=== PATIENT | male | born 1960 | race African-American/Black ===

== ENCOUNTER 2024-09-07 11:43 | Observation (INO) ==
[2024-09-07] MEDS: FAMOTIDINE 20MG IV PUSH 20 MG/5 ML SYR IV STA (12:07)
[2024-09-07 12:08] LABS: Basophils # (auto) 0.06 K/uL (0.00-0.20); Basophils % (auto) 0.7 %; Eosinophils # (auto) 0.07 K/uL (0.00-0.50); Eosinophils % (auto) 0.9 %; Hematocrit (blood only) 40.9 % (42.0-52.0); Hemoglobin 14.4 g/dl (14.0-18.0); Immature Granulocytes # (auto) 0.05 K/uL (0.01-0.20); Immature Granulocytes % (auto) 0.6 %; Lymphocytes # (auto) 2.87 K/uL (1.20-3.40); Mean Corpuscular Hemoglobin 30.4 pg (25.0-34.0); Mean Corpuscular Hgb Conc 35.2 g/dL (32.0-36.0); Mean Corpuscular Volume 86.3 fL (80.0-100.0); Mean Platelet Volume 10.3 fL (9.4-12.4); Monocytes # (auto) 0.42 K/uL (0.11-0.59); Monocytes % (auto) 5.1 %; Neutrophils # (auto) 4.73 K/uL (1.40-6.50); Neutrophils % (auto) 57.7 %; Platelet Count 278 K/uL (130-400); RDW Coefficient of Variation 12.4 % (11.5-14.5); RDW Standard Deviation 39.2 fL (36.4-46.3); Red Blood Count 4.74 M/uL (4.70-6.10)
[2024-09-07] MEDS: NITROGLYCERIN 2% OINTMENT 30GM TUBE EXT STA (12:17)
[2024-09-07 12:28] LABS: Albumin Globulin Ratio 1.5 (0.9-2); Bilirubin,Total 0.8 mg/dl (0.2-1.0); Calcium 9.2 mg/dl (8.6-10.3); Creatinine Clr Calc Pharmacy 113.8 ml/min; Globulin 2.8 gm/dl (2.5-4.0); Magnesium 1.6 mg/dl (1.7-2.4); Total Protein 7.1 gm/dl (6.0-8.3)
--- NOTE | 2024-09-07 12:29 | Emergency Department Note ---
Impression & Plan Acute epigastric pain, Hypertension, Dyspnea, Hypomagnesemia, Hyperglycemia ED Provider Note ED Provider Note NAME: ASHLEY [id number] JW AGE:64 SEX: Male : 1960 ARRIVES VIA: EMS INFORMANT: Patient ED PROVIDER(s): Luly Jarrett DO CHIEF COMPLAINT: Epigastric pain, shortness of breath, dizziness, indigestion HPI: This is a 64-year-old male presents emergency department due to concern for epigastric pain, shortness of breath, dizziness, and indigestion which began this morning after breakfast. Patient states he ate his usual breakfast and took his medications as prescribed. He states he began to develop a sense of epigastric discomfort and indigestion, with some accompanying shortness of breath and dizziness. He states he tried Tums initially without any significant improvement and then took some Maalox. He states that did not help either and so he went to the [facility]. Patient noted to be hypertensive additionally and metabolic was contacted. Patient markedly hypertensive en route with systolics in the 200s. He was given aspirin 324 mg as well as 1 sublingual nitro. Patient's blood sugar prehospital was in the 300s. Patient denies any recent illness, fevers or chills. He denies any overt chest pain. He states the epigastric pain does not radiate. He denies any diaphoresis, leg swelling, change in bowel or bladder function, or recent change in medications. He denies any history of GERD/gastritis. No prior cardiac history. He states no current shortness of breath or lightheadedness, epigastric pain is improved but still present. PAST MEDICAL HISTORY:See Below PAST SURGICAL HISTORY:See Below FAMILY HISTORY:See Below SOCIAL HISTORY:See Below HOME MEDICATIONS:See Below ALLERGIES:See Below VITALS:See Below PHYSICAL EXAMINATION: GENERAL: alert, well appearing, well nourished, no distress, non-toxic EYE EXAM: normal conjunctiva, PERRL and EOM's grossly intact OROPHARYNX: no exudate, no erythema, lips, buccal mucosa, and tongue normal and mucous membranes are moist NECK: supple, no nuchal rigidity, no adenopathy, non-tender LUNGS: Clear to auscultation. Normal chest wall mechanics, no w/r/r HEART: no murmurs, S1 normal and S2 normal ABDOMEN: abdomen soft, non-tender, normo-active bowel sounds, no masses, no rebound or guarding. BACK: Back is symmetrical on inspection and there is no deformity, no midline tenderness, no CVA tenderness. SKIN: no rashes, petechiae, orbruising UPPER EXTREMITIES: upper extremities are grossly normal. FROM, nml pulses b/l. LOWER EXTREMITIES: No pitting edema. FROM, nml pulses b/l. NEURO EXAM: Normal sensorium, cranial nerves II-XII grossly intact, normal speech, no facial droop,nogross weakness of arms, no gross weakness of legs. Gross sensation intact. No ataxia. Vital Signs: reviewed and remarkable Differential Diagnosis: ACS, PUD, GERD, dissection, hypertensive emergency, hypertensive urgency, pneumonia, pneumothorax, GI bleed, SBO, as well as others were considered MEDICAL DECISION MAKING: This is a 64-year-old male presents emergency department due to concern for epigastric pain, shortness of breath, dizziness. Patient was noted to be hypertensive on arrival however otherwise hemodynamically stable. Labs drawn and sent, IV established, EKG and chest ray performed at bedside interpreted by me and patient monitored on telemetry. Patient with concerning EKG findings and did receive serial EKGs. Patient given IV Tylenol, IV pantoprazole, IV famotidine, and Nitropaste. Patient did have some improvement. IV morphine added additionally. Patient had been given aspirin by EMS prehospital. No ectopy or dysrhythmia noted. First troponin negative. Serial EKGs were abnormal with some dynamic changes. Case discussed with not any cardiology and then with interventional cardiology. IV heparin bolus and drip added. Cardiology added a stat bedside echo which they will review. Case discussed with the hospitalist team for additional evaluation and management. Consultation(s): 1320: Discussed with Dr. Phelan, cardiology. 1345: Discussed with Dr. Bush via [place] [facility]. He will order a stat echo. 1351: Discussed with Dr. Oneill, [facility] hospitalist team for additional evaluation. ER Treatment Provided: See below Diagnostics Interpreted By Me: -ECG: Normal sinus at 79, normal axis, left bundle branch block, ST depression noted in lead I with inverted T waves in 2, aVF; no prior for comparison EKG #2: Normal sinus at 64, normal axis, left bundle branch block, ST depression again noted in 1, 2, with T wave inversion in 3, aVF, and V6 EKG #3: Normal sinus at 72, normal axis, left bundle branch block, ST depression noted in 1, 2, with T wave inversion in aVL, flattened in aVF, inverted in V6 -Cardiac Monitoring: An order was placed for continuous cardiac monitoring. The monitor shows a rate of 72 with normal sinus rhythm. -Laboratory studies: As stated above and show below. -Imaging studies: X-ray Chest: A single view study of the chest was reviewed and was negative for cardiomegaly, focal infiltrate, effusion, pulmonary edema, or wide mediastinum. Triage Nursing Note Reviewed Prior/Outside Records Reviewed Critical Care: Critical care of 42 min performed to assess and manage high likelihood of life-threatening ACS, involving labs and imaging performed with assessment to evaluate shortness of breath and abnormal EKG diagnosis] with frequent reassessment. This time includes bedside time, treatment discussions with patient/family/consultants, documentation time and excludes procedure time. Past Med/Surg History Problem List (Updated 09/08/24 @ 11:31 by Trent Durand DO) Demand ischemia Uncontrolled type 2 diabetes mellitus with hyperglycemia Hypertension, uncontrolled NSAID induced gastritis Hyperglycemia (Acute) Hypomagnesemia (Acute) Generalized anxiety disorder Bipolar disorder Mild intermittent asthma History of seizure Dyslipidemia DM type 2 (diabetes mellitus, type 2) CAD (coronary artery disease) Dyspnea (Acute) Hypertension (Acute) Acute epigastric pain (Acute) Social History Smoking Status: Former smoker Hx Alcohol Use: No Hx Substance Use: Yes Last Used Substance Other:: 3 years ago Preferred Language: [place] Communication Ability: Effective 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 Current Living Situation: Other Feels Safe at Home: Yes Assistive Devices: Glasses Allergies Allergies Allergy/AdvReac Type Severity Reaction Status Date / Time Penicillins Allergy Hives Verified 09/07/24 12:57 Home Meds Home Medications Medication Instructions Recorded Confirmed albuterol 90 mcg/actuation aerosol 90 mcg inhalation QID PRN 09/07/24 09/07/24 inhaler Shortness Of Breath Or Wheezing amlodipine 10 mg tablet 10 mg PO DAILY 09/07/24 09/07/24 aspirin 81 mg tablet,delayed 81 mg PO DAILY 09/07/24 09/07/24 release atorvastatin 40 mg tablet 40 mg PO HS 09/07/24 09/07/24 camphor-menthol topical ointment 1 applic topical TID 09/07/24 09/07/24 divalproex 500 mg tablet,delayed 500 mg PO 09/07/24 09/07/24 release glipizide 5 mg tablet 5 mg PO DAILY 09/07/24 09/07/24 lisinopril 30 mg tablet 30 mg PO DAILY 09/07/24 09/07/24 mirtazapine 15 mg tablet 15 mg PO HS 09/07/24 09/07/24 oxcarbazepine 150 mg tablet 150 mg PO BID 09/07/24 09/07/24 tolnaftate 1 % topical solution 1 drp topical DAILY 09/07/24 09/07/24 Results & Data (ED) Vital Signs Vital Signs - 24 hr 09/07/24 11:50 09/07/24 12:00 09/07/24 12:06 Temperature 37.1 C Temperature Source Oral Pulse Rate 70 81 Pulse Rate from SpO2 Sensor Pulse Rhythm Regular Pulse Strength Normal Respiratory Rate 20 21 Blood Pressure 167/101 H 185/105 H Blood Pressure Mean 123 154 Blood Pressure Position Sitting Pulse Oximetry 94 95 Oxygen Delivery Method Room Air Room Air Sepsis Recent Fever Within 48 Hours No Sepsis New/Unexplained Change in Mental Status No Sepsis Action Taken by Nursing No Action Required 09/07/24 12:15 09/07/24 12:18 09/07/24 12:24 Temperature Temperature Source Pulse Rate 72 70 66 Pulse Rate from SpO2 Sensor Pulse Rhythm Pulse Strength Respiratory Rate 20 24 21 Blood Pressure 174/90 H Blood Pressure Mean 118 Blood Pressure Position Pulse Oximetry 95 96 95 Oxygen Delivery Method Room Air Room Air Room Air Sepsis Recent Fever Within 48 Hours Sepsis New/Unexplained Change in Mental Status Sepsis Action Taken by Nursing 09/07/24 12:30 09/07/24 12:39 09/07/24 12:42 Temperature Temperature Source Pulse Rate 66 67 Pulse Rate from SpO2 Sensor 65 69 Pulse Rhythm Pulse Strength Respiratory Rate 22 17 Blood Pressure 161/84 H Blood Pressure Mean 95 Blood Pressure Position Pulse Oximetry 95 97 Oxygen Delivery Method Sepsis Recent Fever Within 48 Hours Sepsis New/Unexplained Change in Mental Status Sepsis Action Taken by Nursing 09/07/24 12:48 09/07/24 12:51 09/07/24 13:00 Temperature Temperature Source Pulse Rate 77 66 Pulse Rate from SpO2 Sensor 69 Pulse Rhythm Pulse Strength Respiratory Rate 19 Blood Pressure 152/92 H Blood Pressure Mean 122 Blood Pressure Position Pulse Oximetry 95 Oxygen Delivery Method Sepsis Recent Fever Within 48 Hours Sepsis New/Unexplained Change in Mental Status Sepsis Action Taken by Nursing 09/07/24 13:18 09/07/24 13:30 09/07/24 13:32 Temperature Temperature Source Pulse Rate 69 78 Pulse Rate from SpO2 Sensor 70 78 Pulse Rhythm Pulse Strength Respiratory Rate 24 25 H Blood Pressure 209/111 H Blood Pressure Mean 163 Blood Pressure Position Pulse Oximetry 96 97 Oxygen Delivery Method Sepsis Recent Fever Within 48 Hours Sepsis New/Unexplained Change in Mental Status Sepsis Action Taken by Nursing 09/07/24 13:45 09/07/24 13:55 09/07/24 13:57 Temperature Temperature Source Pulse Rate 68 75 Pulse Rate from SpO2 Sensor 67 75 Pulse Rhythm Pulse Strength Respiratory Rate 19 23 Blood Pressure 159/88 H Blood Pressure Mean 103 Blood Pressure Position Pulse Oximetry 96 95 Oxygen Delivery Method Sepsis Recent Fever Within 48 Hours Sepsis New/Unexplained Change in Mental Status Sepsis Action Taken by Nursing 09/07/24 14:00 Temperature Temperature Source Pulse Rate Pulse Rate from SpO2 Sensor Pulse Rhythm Pulse Strength Respiratory Rate Blood Pressure 154/88 H Blood Pressure Mean 125 Blood Pressure Position Pulse Oximetry Oxygen Delivery Method Sepsis Recent Fever Within 48 Hours Sepsis New/Unexplained Change in Mental Status Sepsis Action Taken by Nursing Laboratory Data 09/08/24 07:54 09/08/24 07:54 Lab Results 09/07/24 Range/Units 11:52 WBC 8.20 (4.8-10.8) K/ul RBC 4.74 (4.70-6.10) M/uL Hgb 14.4 (14.0-18.0) g/dl Hct 40.9 L (42.0-52.0) % MCV 86.3 (80.0-100.0) fL MCH 30.4 (25.0-34.0) pg MCHC 35.2 (32.0-36.0) g/dL RDW Std Deviation 39.2 (36.4-46.3) fL RDW Coeff of Dominic 12.4 (11.5-14.5) % Plt Count 278 (130-400) K/uL MPV 10.3 (9.4-12.4) fL Immature Gran % (Auto) 0.6 % Neut % (Auto) 57.7 % Lymph % (Auto) 35.0 % [place] % (Auto) 5.1 % Eos % (Auto) 0.9 % Baso % (Auto) 0.7 % Neut # (Auto) 4.73 (1.40-6.50) K/uL Lymph # (Auto) 2.87 (1.20-3.40) K/uL [place] # (Auto) 0.42 (0.11-0.59) K/uL Eos # (Auto) 0.07 (0.00-0.50) K/uL Baso # (Auto) 0.06 (0.00-0.20) K/uL Immature Gran # (Auto) 0.05 (0.01-0.20) K/uL PT 10.3 (9.0-12.0) Seconds INR 0.9 (0.9-1.1) Sodium 136 (136-145) mmol/L Potassium 4.0 (3.5-5.1) mmol/L Chloride 104 (98-107) mmol/L Carbon Dioxide 25 (21-32) mmol/L Anion Gap 7 (3-11) BUN 12 (6-23) mg/dl Creatinine 0.86 (0.6-1.4) mg/dl Est Cr Clr Drug Dosing 113.8 ml/min eGFR 97.90 BUN/Creatinine Ratio 14.0 (10-20) Glucose 329 H* (70-99(Fasting)) mg/dl Calcium 9.2 (8.6-10.3) mg/dl Magnesium 1.6 L (1.7-2.4) mg/dl Total Bilirubin 0.8 (0.2-1.0) mg/dl AST 39 (13-39) U/L ALT 57 H (7-52) U/L Alkaline Phosphatase 91 (34-104) U/L Troponin I High Sens 12.7 (0-20) pg/ml Total Protein 7.1 (6.0-8.3) gm/dl Albumin 4.3 (3.4-5.0) gm/dl Globulin 2.8 (2.5-4.0) gm/dl Albumin/Globulin Ratio 1.5 (0.9-2) Lipase 24 (11-82) U/L TSH 0.630 (0.300-4.500) uIu/ml Administered Medications Acetaminophen (Acetaminophen 325 Mg Tab) 650 mg PO Q4H PRN PRN Reason: Pain or Fever Stop: 10/07/24 13:59 Last Admin: 09/08/24 23:07 Dose: 650 mg Documented By: Admin: 09/08/24 14:19 Dose: 650 mg Documented By: Admin: 09/07/24 16:59 Dose: 650 mg Documented By: ARPAN Amlodipine Besylate (Amlodipine Besylate 5 Mg Tab) 10 mg PO DAILY LIZ Stop: 10/08/24 08:59 Last Admin: 09/08/24 08:58 Dose: 10 mg Documented By: HAO Aspirin (Aspirin 81 Mg Ectab) 81 mg PO DAILY LIZ Stop: 10/08/24 08:59 Last Admin: 09/08/24 08:59 Dose: 81 mg Documented By: HAO Atorvastatin Calcium (Atorvastatin 40 Mg Tab) 40 mg PO HS [facility] Stop: 10/07/24 20:59 Last Admin: 09/08/24 20:33 Dose: 40 mg Documented By: Admin: 09/07/24 21:08 Dose: 40 mg Documented By: JULIANNE Carvedilol (Carvedilol 3.125 Mg Tab) 3.125 mg PO BIDM LIZ Stop: 10/08/24 16:59 Last Admin: 09/08/24 17:02 Dose: 3.125 mg Documented By: HAO Divalproex Sodium (Divalproex Delay Release 500 Mg Tab) 500 mg PO HS LIZ Stop: 10/07/24 20:59 Last Admin: 09/08/24 20:33 Dose: 500 mg Documented By: Admin: 09/07/24 21:08 Dose: 500 mg Documented By: JULIANNE Insulin Aspart (Insulin Aspart Per Unit Charge) 0 units SC ACHS LIZ Stop: 10/07/24 16:29 Last Admin: 09/08/24 20:33 Dose: 2 units Documented By: JULIANNE Co-signed By: VICENTE Admin: 09/08/24 17:01 Dose: 5 units Documented By: HOA Co-signed By: MACIEL Admin: 09/08/24 12:11 Dose: 5 units Documented By: HAO Co-signed By: AM Admin: 09/08/24 09:10 Dose: 8 units Documented By: HAO Co-signed By: ANDREA Admin: 09/07/24 20:07 Dose: Not Given Documented By: Admin: 09/07/24 16:12 Dose: 2 units Documented By: ARPAN Co-signed By: LATONIA Insulin Glargine (Lantus Per Unit Charge) 0 units SC [facility]; Protocol Stop: 10/08/24 08:59 Last Admin: 09/08/24 08:55 Dose: Not Given Documented By: HAO Lisinopril (Lisinopril 40 Mg Tab) 40 mg PO DAILY LIZ Stop: 10/08/24 08:59 Last Admin: 09/08/24 09:10 Dose: 40 mg Documented By: HAO Mirtazapine (Mirtazapine Tab 15 Mg Tab) 15 mg PO HS [facility] Stop: 10/07/24 20:59 Last Admin: 09/08/24 20:33 Dose: 15 mg Documented By: Admin: 09/07/24 21:08 Dose: 15 mg Documented By: JULIANNE Oxcarbazepine (Oxcarbazepine 150 Mg Tablet) 150 mg PO BID [facility] Stop: 10/07/24 20:59 Last Admin: 09/08/24 20:33 Dose: 150 mg Documented By: Admin: 09/08/24 08:58 Dose: 150 mg Documented By: Admin: 09/07/24 21:08 Dose: 150 mg Documented By: JULIANNE Pantoprazole Sodium (Pantoprazole 40 Mg Tab) 40 mg PO BID [facility] Stop: 10/08/24 08:59 Last Admin: 09/08/24 20:33 Dose: 40 mg Documented By: Admin: 09/08/24 09:10 Dose: 40 mg Documented By: HAO Discontinued Medications Heparin Sodium (Porcine) (Heparin Sod (Porcine) 1000 Unit/Ml) 4,000 units IV NOW ONE Stop: 09/07/24 14:46 Last Admin: 09/07/24 14:49 Dose: 4,000 units Documented By: JUAN Co-signed By: SINAN Heparin Sodium/Dextrose (Heparin Iv Adult Wt-Based Low-Dose W/ Initial Bolus Protocol) 1 each IV NOW STA; Protocol Stop: 09/07/24 13:34 Last Admin: 09/07/24 14:51 Dose: Not Given Documented By: JUAN Famotidine (Pepcid 20mg Iv Push) 20 mg in 5 mls @ 2.5 mls/min IV NOW STA Stop: 09/07/24 11:57 Last Admin: 09/07/24 12:07 Dose: 2.5 mls/min Documented By: SINAN Magnesium Sulfate/Dextrose (Magnesium Sulfate / D5w) 1 gm in 100 mls @ 100 mls/hr IV NOW STA Stop: 09/07/24 13:34 Last Infusion: 09/07/24 13:48 Dose: Infused Documented By: Admin: 09/07/24 12:48 Dose: 100 mls/hr Documented By: JUAN Sodium Chloride (Nss) 1,000 mls @ 60 mls/hr IV .[id number] LIZ Stop: 09/10/24 12:44 Last Infusion: 09/08/24 10:31 Dose: Infused Documented By: Admin: 09/08/24 04:05 Dose: 125 mls/hr Documented By: Infusion: 09/08/24 04:05 Dose: Infused Documented By: Admin: 09/07/24 20:09 Dose: 125 mls/hr Documented By: Infusion: 09/07/24 20:09 Dose: Infused Documented By: Admin: 09/07/24 12:48 Dose: 125 mls/hr Documented By: JUAN Pantoprazole Sodium (Protonix) 40 mg in 10 mls @ 5 mls/min IV NOW ONE Stop: 09/07/24 12:57 Last Admin: 09/07/24 13:14 Dose: 5 mls/min Documented By: JUAN Acetaminophen (Ofirmev) 1,000 mg in 100 mls @ 400 mls/hr IV NOW STA Stop: 09/07/24 13:20 Last Infusion: 09/07/24 13:30 Dose: Infused Documented By: Admin: 09/07/24 13:14 Dose: 400 mls/hr Documented By: JUAN Heparin Sodium/Dextrose (Heparin 75573 Unit/500 Ml D5w) 25,000 units in 500 mls @ 0 mls/hr IV .Q0M LIZ; Protocol Stop: 10/07/24 13:59 Last Titration: 09/08/24 01:43 Dose: Infused Documented By: JULIANNE Co-signed By: MELIDA Titration: 09/07/24 17:27 Dose: 0 units/hr, 0 mls/hr Documented By: ARPAN Co-signed By: WMK Admin: 09/07/24 14:50 Dose: 1,000 units/hr, 20 mls/hr Documented By: JUAN Co-signed By: SINAN Pantoprazole Sodium (Protonix) 40 mg in 10 mls @ 5 mls/min IV BID LIZ Stop: 10/07/24 20:59 Last Admin: 09/07/24 21:08 Dose: 5 mls/min Documented By: JULIANNE Heparin Sodium/Dextrose (Heparin 50404 Unit/500 Ml D5w) 25,000 units in 500 mls @ 20 mls/hr IV .Q24H LIZ; Protocol Stop: 10/08/24 01:44 Last Titration: 09/08/24 08:56 Dose: Infused Documented By: HAO Co-signed By: ANDREA Titration: 09/08/24 07:03 Dose: 1,000 units/hr, 20 mls/hr Documented By: JULIANNE Co-signed By: HAO Admin: 09/08/24 01:44 Dose: 1,000 units/hr, 20 mls/hr Documented By: JULIANNE Co-signed By: MLEIDA Insulin Glargine (Lantus Per Unit Charge) 0 units SC HS LIZ; Protocol Stop: 10/07/24 20:59 Last Admin: 09/07/24 20:06 Dose: Not Given Documented By: JULIANNE Ioversol (Optiray 320 125ml) 115 ml IV ONCE ONE Stop: 09/07/24 16:36 Last Admin: 09/07/24 16:36 Dose: 115 ml Documented By: JESICA Morphine Sulfate (Morphine Sulfate 2 Mg/Ml Carp) 2 mg IV NOW STA Stop: 09/07/24 13:35 Last Admin: 09/07/24 14:37 Dose: Not Given Documented By: JUAN Nitroglycerin (Nitroglycerin 2% Ointment 30gm Tube) 1 inch EXT NOW STA Stop: 09/07/24 12:10 Last Admin: 09/07/24 12:17 Dose: 1 inch Documented By: SINAN Imaging Data Radiologist's Impression: Chest X-Ray 09/07/24 11:55 Clinical History: Epigastric pain Technique: 2 frontal views of the chest were obtained Findings: There are no confluent pulmonary infiltrates. The heart size is within normal limits. No pleural effusion or pneumothorax is seen. There is no definite pulmonary nodule. No fracture is noted. No foreign body is seen Impression: No active disease Electronically signed by Sam Chandra 09-07-2024 13:21 PM Discharge Plan Visit Data Chief Complaint: Hypertension ED Provider: Luly Jarrett Discharge Problem: Acute epigastric pain, Hypertension, Dyspnea, Hypomagnesemia, Hyperglycemia Patient Disposition: Admitted As Inpatient Condition: Critical Discharge Instructions Interventions: ED Discharge Assessment Last Done: 09/07/24 15:00
[2024-09-07 12:33] LABS: INR 0.9 (0.9-1.1); Prothrombin Time 10.3 Seconds (9.0-12.0)
[2024-09-07 12:36] LABS: Troponin I High Sensitivity 12.7 pg/ml (0-20)
[2024-09-07 12:41] LABS: Thyroid Stimulating Hormone 0.63 uIu/ml (0.300-4.500)
[2024-09-07] MEDS: MAGNESIUM SULFATE / D5W 1 GM/100 ML BAG IV STA (12:48)
[2024-09-07] MEDS: SODIUM CHLORIDE 0.9% 1,000 ML IV SCH (12:48)
[2024-09-07] MEDS: PANTOprazole 40 MG/10 ML SYR IV ONE (13:14)
[2024-09-07] MEDS: ACETAMINOPHEN 1,000 MG/100 ML VIAL IV STA (13:14)
--- NOTE | 2024-09-07 13:22 | XRay Report ---
Clinical History: Epigastric pain Technique: 2 frontal views of the chest were obtained Findings: There are no confluent pulmonary infiltrates. The heart size is within normal limits. No pleural effusion or pneumothorax is seen. There is no definite pulmonary nodule. No fracture is noted. No foreign body is seen Impression: No active disease Electronically signed by Sam Chandra 09-07-2024 13:21 PM
[2024-09-07] MEDS ORDERED: HEPARIN SOD (PORCINE) 1000 UNIT/ML IV ONE (13:48)
[2024-09-07] MEDS ORDERED: ONDANSETRON INJ 2 MG/ML 2 ML VIAL IV PRN (14:00)
[2024-09-07] MEDS ORDERED: CARBOHYDRATES FOR HYPOGLYCEMIA PO PRN (14:06)
[2024-09-07] MEDS ORDERED: GLUCOSE 40% GEL 15 GM TUBE PO PRN (14:06)
[2024-09-07] MEDS ORDERED: GLUCAGON FOR INJ 1 MG VIAL SQ PRN (14:06)
[2024-09-07] MEDS ORDERED: PHARMACY GLYCEMIC MGMT CONSULT PRN (14:06)
[2024-09-07] MEDS ORDERED: DEXTROSE 50% 50 ML SYRINGE IV PRN (14:06)
[2024-09-07] MEDS ORDERED: GLUCOSE 10 TAB/TUBE PO PRN (14:06)
--- NOTE | 2024-09-07 14:35 | Pharmacy Report ---
Pharmacy Glycemic Short Note 2 - Date of Service September 07, 2024 - Glycemic Short BSG Results (Last 24 hours): 09/07/24 11:52 Glucose 329 H* OUTPATIENT ANTIDIABETIC REGIMEN: * Glipizide 5mg PO daily * A1c ordered ASSESSMENT: * 64 yo M admitted to telemetry for monitoring, acute epigastric pain, Hypertension, Dyspnea. * Blood sugar on arrival 329mg/dl, took glipizide this morning. Will give 10 units SC NovoLog and basal insulin now. PLAN FOR INPATIENT GLYCEMIC CONTROL: * Hold outpatient oral diabetes medications * Basal insulin * Lantus 20 units SQ x1 dose now, 10 units HS for BSG > 180mg/dl * Bolus insulin * NovoLog per scale ACHS or Q6hrs while NPO * Goal Range: Low 110 mg/dL - High 140 mg/dL * Correction Factor: 20 mg/dL/unit * Nutritional / Prandial insulin per carb ratio of 1 unit per 7 grams CHO consumed
[2024-09-07] MEDS: MoRPHine SULFATE 2 MG/ML CARP IV STA (14:37)
[2024-09-07] MEDS: HEPARIN SOD (PORCINE) 1000 UNIT/ML IV ONE (14:49)
[2024-09-07] MEDS: HEPARIN 25000 UNIT/500 ML D5W 25,000 UNITS/500 ML BAG IV SCH (14:50)
[2024-09-07] MEDS: Heparin IV Adult Wt-Based Low-Dose w/ INITIAL Bolus Protocol IV STA (14:51)
--- NOTE | 2024-09-07 15:02 | History & Physical Report ---
Date of Service September 07, 2024 Assessment & Plan (1) Acute epigastric pain: (2) Hypertension: (3) CAD (coronary artery disease): (4) DM type 2 (diabetes mellitus, type 2): (5) Dyslipidemia: (6) History of seizure: (7) Mild intermittent asthma: (8) Bipolar disorder: (9) Generalized anxiety disorder: Plan: 64 year old male with history of coronary artery disease, diabetes type 2, hypertension, dyslipidemia, seizure disorder, arthritis, bipolar disorder, anxiety, mild intermittent asthma, History of cocaine use, presenting with epigastric pain after his meal this morning. EPIGASTRIC PAIN WITH SHORTNESS OF BREATH, EKG CHANGES HISTORY OF CAD POSSIBLE ETIOLOGIES: R/O ACS risk factors: CAD history, DM 2, HTN, HLD Trop x 1 negative, trend EKG: LBBB, non specific T wave changes lateral leads Stat echo pending IV heparin, Nitropaste continue usual lisinopril, Lipitor, ASA Dr. Phelan and Dr. Bush from cardiology service made aware by ER physician Dr. Jarrett NPO for now UNCONTROLLED HTN BP improving nitropaste ordered continue usual Lisinopril, Amlodipine monitor closely POSSIBLE PEPTIC ULCER DISEASE, GASTRITIS risk factors: chronic ASA, Ibuprofen use Protonix IV BID GI consult if cardiac work up negative R/O ACUTE PULMONARY EMBOLISM check D dimer HYPERGLYCEMIA DM 2 BSG 300s ISS, pharmacy glycemic consult usually takes Glipizide A1c in AM CHRONIC MEDICAL PROBLEMS: HISTORY OF SEIZURE- continue Depakote, Trilepta ARTHRITIS BIPOLAR DISORDER, ANXIETY MILD INTERMITTENT ASTHMA- on PRN Albuterol HISTORY OF COCAINE USE DVT prophylaxis on Heparin drip FULL CODE [facility] History of Present Illness Chief Complaint: epigastric pain starting early this morning Primary Care Provider: SARINA Sun 64 year old male with history of coronary artery disease, diabetes type 2, hypertension, dyslipidemia, seizure disorder, arthritis, bipolar disorder, anxiety, mild intermittent asthma, History of cocaine use, presenting with epigastric pain after his meal this morning. History obtained from patient and also [facility] RN. patient reports that after having his breakfast, he developed epigastric pain, sharp/burning, severe, nonradiating, associated with some shortness of breath and dizziness. He then presented to the [facility] and was noted to be hypertensive in the systolic 200s. He was given sublingual nitro and aspirin 324 mg. BSG was also found to be in the 300s. Patient reports improvement of the epigastric pain after taking the sublingual nitro. At the ER, blood pressure 167/101, heart rate 70, respiratory 20, temperature 37.1, 94% on room air. Troponin x 1 negative, EKG showing left bundle branch block, nonspecific T wave inversions in lateral leads- No previous EKGs for comparison. ER physician discussed case with on-call laborer general and bobbin marker. Echocardiogram stat ordered. He was also given Nitropaste, heparin drip, Protonix, famotidine and morphine IV. on exam, patient seen resting in bed, not in distress, comfortable States epigastric pain is moderate, nonradiating, no active shortness of breath, nausea, diaphoresis. He denies melena hematochezia but takes baby aspirin daily along with ibuprofen. No other new symptoms Allergies Allergy/AdvReac Type Severity Reaction Status Date / Time Penicillins Allergy Hives Verified 09/07/24 12:57 Home Medications Medication Instructions Recorded Confirmed Type albuterol 90 mcg/actuation aerosol 90 mcg inhalation QID PRN 09/07/24 09/07/24 History inhaler Shortness Of Breath Or Wheezing amlodipine 10 mg tablet 10 mg PO DAILY 09/07/24 09/07/24 History aspirin 81 mg tablet,delayed 81 mg PO DAILY 09/07/24 09/07/24 History release atorvastatin 40 mg tablet 40 mg PO HS 09/07/24 09/07/24 History camphor-menthol topical ointment 1 applic topical TID 09/07/24 09/07/24 History divalproex 500 mg tablet,delayed 500 mg PO HS 09/07/24 09/07/24 History release glipizide 5 mg tablet 5 mg PO DAILY 09/07/24 09/07/24 History lisinopril 30 mg tablet 30 mg PO DAILY 09/07/24 09/07/24 History mirtazapine 15 mg tablet 15 mg PO HS 09/07/24 09/07/24 History oxcarbazepine 150 mg tablet 150 mg PO BID 09/07/24 09/07/24 History tolnaftate 1 % topical solution 1 drp topical DAILY 09/07/24 09/07/24 History Past Med/Surg History Problem List (Updated 09/07/24 @ 15:14 by Guille Oneill MD) Generalized anxiety disorder Bipolar disorder Mild intermittent asthma History of seizure Dyslipidemia DM type 2 (diabetes mellitus, type 2) CAD (coronary artery disease) Dyspnea (Acute) Hypertension (Acute) Acute epigastric pain (Acute) Social History Smoking Status: Former smoker Feels Safe at Home: Yes Review of Systems Review of Systems: all noted and negative except for above Physical Exam Physical Exam: General- oriented x 3, not in distress, speaks in sentences with no effort or accessory muscle use Head- atraumatic Eyes- PERRL, EOMI, anicteric ENT- oropharynx clear Neck- supple, no JVD, no adenopathy, no thyromegaly; carotids +2/2, no bruits appreciated Lungs- clear to auscultation bilaterally, no rales/wheezes Heart- normal rate, regular rhythm; no murmur, no gallop, no rub appreciated Abdomen- normal bowel sounds, nondistended, soft, (+) mild epigastric tenderness, no masses or hepatosplenomegaly Extremities- no pretibial edema, no calf tenderness; peripheral pulses intact Neuro- alert, oriented x 3; CN 2-12 grossly intact; motor 5/5 bilaterally;sensation 100% on all extremities; no other gross focal neurologic deficits Skin- warm & dry Results & Data Results & Data Vital Signs (Past 12 Hours) Vital Signs Temp Pulse Resp BP Pulse Ox O2 Del Method 09/07/24 14:31 152/70 H 09/07/24 14:30 65 25 H 93 09/07/24 14:27 64 21 94 09/07/24 14:18 70 24 96 09/07/24 14:03 80 24 96 09/07/24 14:00 154/88 H 09/07/24 13:57 75 23 95 09/07/24 13:55 159/88 H 09/07/24 13:45 68 19 96 09/07/24 13:32 209/111 H 09/07/24 13:30 78 25 H 97 09/07/24 13:18 69 24 96 09/07/24 13:00 152/92 H 09/07/24 12:51 66 19 95 09/07/24 12:48 77 09/07/24 12:42 67 17 97 09/07/24 12:39 66 22 95 09/07/24 12:30 161/84 H 09/07/24 12:24 66 21 95 Room Air 09/07/24 12:18 70 24 174/90 H 96 Room Air 09/07/24 12:15 72 20 95 Room Air 09/07/24 12:06 81 21 95 Room Air 09/07/24 12:00 185/105 H 09/07/24 11:50 37.1 C 70 20 167/101 H 94 Room Air all noted and reviewed including below Code Status & VTE Plan VTE Prophylaxis Plan VTE Prophylaxis will be ordered: Yes
--- NOTE | 2024-09-07 15:07 | XCELERA ---
[id number]
[2024-09-07] MEDS ORDERED: LANTUS PER UNIT CHARGE SC ONE (15:15)
[2024-09-07] MEDS ORDERED: INSULIN ASPART PER UNIT CHARGE SC ONE (15:15)
[2024-09-07 15:17] LABS: Partial Thromboplastin Time 28 Seconds (21-31)
--- NOTE | 2024-09-07 15:28 | Cardiology Consultation ---
Date of Consultation September 07, 2024 Assessment & Plan (1) Acute epigastric pain: This is reproducible to palpation and also in the epigastrium. His echo does not show evidence of ACS (normal wall motion). First troponin is negative despite several hours of chest discomfort and I am waiting on the second troponin to return. There is no objective evidence at this time to suggest this represents ACS. Would continue workup for epigastric discomfort and given his very high blood pressure it may be reasonable to also exclude aortic pathology. If his troponin becomes positive then we can consider evaluation of his coronaries prior to discharge. (2) Hypertension: Blood pressure is improving but still above target. Continue amlodipine 10 mg daily lisinopril 30 mg daily, and consider low-dose beta-connor. (3) Dyslipidemia: Patient is high risk (diabetes). High intensity statin therapy recommended. Takes atorvastatin 40 mg daily which should be adequate. History of Present Illness Reason for Consultation: Chest discomfort History of Present Illness 64-year-old inmate with a history of diabetes, dyslipidemia, and hypertension presented after developing epigastric burning and sharp pain beginning around 8:00 this morning. This occurred after he had eaten breakfast. He had associated shortness of breath when the pain was sharp. At first he thought this was indigestion but the pain worsened and he was therefore brought from the [facility] at the present to the emergency department. EKG demonstrates left bundle branch block. Initial cardiac troponin was normal (about 3 hours after onset of discomfort). His blood pressure was fairly high. He was provided nitroglycerin and aspirin. On my initial evaluation his discomfort had significantly improved although it had not completely resolved. He tells me that he is under stress because he is preparing to return home (presumably released from custodial). He also tells me that he has had a cardiac murmur since he was a child. Patient tells me he exercises regularly. Mostly lifting weights but also some cardio workout. Never had any of the symptoms prior to today. He has a remote history of tobacco use (3 packs/day) but has not smoked in a long time. He does not drink any alcohol and did use methamphetamine many years ago. He has improved his diet and been able to change from insulin to oral diabetes medications. He denies any syncope, near syncope, orthopnea, PND, racing heartbeat, palpitations, or edema. He voices no other complaints or concerns at this time. Allergies Allergy/AdvReac Type Severity Reaction Status Date / Time Penicillins Allergy Hives Verified 09/07/24 12:57 Home Medications Medication Instructions Recorded Confirmed Type albuterol 90 mcg/actuation aerosol 90 mcg inhalation QID PRN 09/07/24 09/07/24 History inhaler Shortness Of Breath Or Wheezing amlodipine 10 mg tablet 10 mg PO DAILY 09/07/24 09/07/24 History aspirin 81 mg tablet,delayed 81 mg PO DAILY 09/07/24 09/07/24 History release atorvastatin 40 mg tablet 40 mg PO HS 09/07/24 09/07/24 History camphor-menthol topical ointment 1 applic topical TID 09/07/24 09/07/24 History divalproex 500 mg tablet,delayed 500 mg PO HS 09/07/24 09/07/24 History release glipizide 5 mg tablet 5 mg PO DAILY 09/07/24 09/07/24 History lisinopril 30 mg tablet 30 mg PO DAILY 09/07/24 09/07/24 History mirtazapine 15 mg tablet 15 mg PO HS 09/07/24 09/07/24 History oxcarbazepine 150 mg tablet 150 mg PO BID 09/07/24 09/07/24 History tolnaftate 1 % topical solution 1 drp topical DAILY 09/07/24 09/07/24 History Patient History Social History Smoking Status: Former smoker Feels Safe at Home: Yes Review of Systems Review of Systems: Negative except as per HPI Physical Exam Constitutional: WD/WN, vitals as above (Obese, middle-age. No acute dis tress.) Eyes: Extraocular muscles intact. Sclera are anicteric. Neck: No JVD Respiratory: Clear to auscultation bilaterally. No wheezing, rhonchi, or rales. Cardiovascular: Regular rate and rhythm. S4 gallop. Grade 1-2/6 systolic murmur heard best at the right upper sternal borders but also throughout the precordium. No edema. 2+ distal pulses. Chest (Breasts): Additional Comments: Patient is exquisitely tender to palpation over the xiphoid process. Also in the epigastrium just below this. Musculoskeletal: no cyanosis or clubbing, extremities motor strength 5/5 Neurologic: Cognition is intact. Speech is fluent. No focal deficits. Psychiatric: A+Ox3, euthymic affect Results & Data Vital Signs (Past 12 Hours) Vital Signs Temp Pulse Resp BP Pulse Ox O2 Del Method 09/07/24 14:31 152/70 H 09/07/24 14:30 65 25 H 93 09/07/24 14:27 64 21 94 09/07/24 14:18 70 24 96 09/07/24 14:03 80 24 96 09/07/24 14:00 154/88 H 09/07/24 13:57 75 23 95 09/07/24 13:55 159/88 H 09/07/24 13:45 68 19 96 09/07/24 13:32 209/111 H 09/07/24 13:30 78 25 H 97 09/07/24 13:18 69 24 96 09/07/24 13:00 152/92 H 09/07/24 12:51 66 19 95 09/07/24 12:48 77 09/07/24 12:42 67 17 97 09/07/24 12:39 66 22 95 09/07/24 12:30 161/84 H 09/07/24 12:24 66 21 95 Room Air 09/07/24 12:18 70 24 174/90 H 96 Room Air 09/07/24 12:15 72 20 95 Room Air 09/07/24 12:06 81 21 95 Room Air 09/07/24 12:00 185/105 H 09/07/24 11:50 37.1 C 70 20 167/101 H 94 Room Air PG Care Time/CCT Total # of Minutes Spent Total Time Spent with Patient: Total time spent is greater than 50% in coordination of care (as documented) at patient's floor/unit and/or counseling patient: Coding Level of Care Code 45441 IN/OBS CONSULT LVL 3,45M Diagnoses Acute epigastric pain R10.13 Hypertension I10 Dyslipidemia E78.5
[2024-09-07] MEDS ORDERED: Heparin IV Adult Wt-Based Low-Dose *NO* INITIAL Bolus Protocol IV STA (15:40)
[2024-09-07 15:59] LABS: D Dimer 240 ug/L FEU (0-500)
[2024-09-07] MEDS ORDERED: HEPARIN 25000 UNIT/500 ML D5W 25,000 UNITS/500 ML BAG IV SCH (16:00)
[2024-09-07] MEDS ORDERED: ALBUTEROL HFA 8 GM INHALER INH PRN (16:07)
[2024-09-07] MEDS: INSULIN ASPART PER UNIT CHARGE SC SCH (16:12)
[2024-09-07] MEDS: OPTIRAY 320 125ml IV ONE (16:36)
[2024-09-07] MEDS: ACETAMINOPHEN 325 MG TAB PO PRN (16:59)
--- NOTE | 2024-09-07 17:41 | CT Scan Report ---
EXAM: CT abd pelvis wo con CLINICAL HISTORY: Epigastric pain. TECHNIQUE: Non-contrast CT of the abdomen and pelvis was performed, with the following protocol: axial images, and reconstructed coronal and sagittal images. One of the following dose reduction techniques was utilized for this exam: Automated exposure control, adjustment of the mA and/or kV according to patient size, and use of iterative reconstruction. COMPARISON: None. FINDINGS: Abdomen: Liver: enlarged in size by 20 cm in the right lobe span, preserved shape, and diffuse fatty density. No focal lesions, cysts, or masses were identified. Gallbladder and Biliary System: The gallbladder is normal in size and shape. No wall thickening, pericholecystic fluid, or gallstones were identified. Pancreas: Pancreatic head, body, and tail are visualized and appear normal in size and density. No pancreatic masses or calcifications were noted. Spleen: Normal in size, shape, and density. No splenic lesions or masses were identified. Appendix: The appendix is normal in size without jessica appendiceal fat stranding and without an appendicolith. No evidence of appendiceal abscess or perforation. Kidneys and Adrenal Glands: Left renal cortical cyst noted, of 25 x 27 mm size. Both kidneys are normal in size, shape, and position. Cortical thickness is within normal limits. No renal calculi or hydronephrosis. Adrenal glands are unremarkable. Abdominal Aorta and Vessels: The abdominal aorta and major branches are patent without evidence of an aneurysm. Diffuse aortic atherosclerotic changes were noted. Small umbilical hernial sac harboring omental fat. Pelvis: Urinary Bladder: Normal in contour and wall thickness. No intraluminal lesions. Prostate: enlarged in size and contour. No masses or abnormal thickening. Seminal Vesicles: Normal appearance without abnormal enlargement or mass. Peritoneal and Retroperitoneal Structures: No free fluid or abnormal fluid collections were identified within the abdomen or pelvis. No lymphadenopathy was noted. Bowel: Few colonic diverticulosis with no signs of diverticulitis were noted. The visualized bowel loops are normal in caliber and appearance. No evidence of bowel obstruction or wall thickening. Bones and Soft Tissues: Moderate spondylosis of the lumbar spine was noted. Pelvic bones and soft tissues are unremarkable. No fractures or abnormal masses were identified. IMPRESSION: 1. Hepatomegaly with diffuse hepatic steatosis. 2. Small umbilical hernia with omental fat. 3. Diffuse aortic atherosclerotic changes. 4. Left renal cortical cyst. 5. Few colonic diverticulosis with no signs of diverticulitis. 6. Prostatomegaly. Electronically signed by Aayush Martinez 09-07-2024 5:40 PM
[2024-09-07] MEDS ORDERED: NITROGLYCERIN 2% OINTMENT 30GM TUBE EXT SCH (18:00)
--- NOTE | 2024-09-07 18:04 | CT Scan Report ---
EXAM: CT angio chest dissec wo/w con CLINICAL HISTORY: Epigastric pain, uncontrolled HTN. TECHNIQUE: Contiguous 3.[address] angiographic images of the chest were acquired with and without the administration of intravenous contrast. Coronal and sagittal reconstructions were obtained. Contrast was administered for post-contrast images. One of these 3D techniques was utilized: Maximum Intensity Pixel (MIP), 3D Reconstructed Images, Volume Rendered Images, Surface Shaded Rendering. COMPARISON: With x-ray 09/07/2024. 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 FINDINGS: Aorta: The ascending thoracic aorta is ecstatic in size (48 x 47 mm in cross-section) No evidence of dissection The aortic arch and descending thoracic aorta show mild atherosclerotic changes. Diffuse coronary atherosclerotic changes were noted. Pulmonary Arteries: Pulmonary arteries are normal in size and opacification. No evidence of pulmonary embolism. No stenosis or filling defects. Superior Vena Cava (SVC) and Inferior Vena Cava (IVC): Normal opacification and caliber. No evidence of thrombus or obstruction. Coronary Arteries: Coronary arteries are well-opacified. No significant stenosis or atherosclerotic changes. Mediastinum: No mediastinal mass or lymphadenopathy. Normal appearance of the thymus. Heart: Normal size and morphology of the heart. No pericardial effusion. Lungs: Lungs are clear with no evidence of consolidation, nodules, or masses. Bilateral basal pleural thickening/reaction with associated bilateral basal pulmonary atelectasis. Bones: Moderate spondylosis of the thoracic spine was noted. No fractures or lytic/sclerotic lesions of the visualized bony structures. Normal alignment and bone density. Soft Tissues: Normal appearance of the visualized soft tissues. No abnormal masses or fluid collections. Upper abdominal cuts show a small left renal cortical cyst of 26 x 30 mm in size. IMPRESSION: 1. No signs of pulmonary embolism are appreciated. 2. Diffuse aortic atherosclerotic changes were noted. 3. Ectatic ascending aorta. 4. Bilateral basal pleural thickening/reaction with associated bilateral basal pulmonary atelectasis. 5. No gross interval change since the prior study. Electronically signed by Aayush Martinez 09-07-2024 6:04 PM
--- NOTE | 2024-09-07 19:02 | CT Scan Report ---
EXAM: CT head/brain wo con CLINICAL HISTORY: Severe headache, r/o bleed. TECHNIQUE: Axial non-contrast CT scan of the brain was performed from the skull base to the high parietal region. One of the following dose reduction techniques were utilized for this exam: Automated exposure control, adjustment of the mA and/or kV according to patient size, use of iterative reconstruction. COMPARISON: None. FINDINGS: Traces of contrast are seen within the cerebral vessels. Brain Parenchyma: Age-appropriate cortical changes are evident by dilated sulci Accentuated periventricular hypodensity with tiny ill-defined foci seen at the bilateral centrum semiovale, indicating deep white matter microvascular ischemia. No evidence of acute infarct, hemorrhage, or mass effect. No abnormal areas of hypo- or hyperattenuation. No evidence of hydrocephalus No evidence of subarachnoid hemorrhage or extra-axial fluid collections. Cerebellum and Brainstem: No masses, lesions, or areas of abnormal density. Orbits: Normal appearance of the globes, optic nerves, and extraocular muscles. No evidence of orbital masses or abnormal density. Sinuses: Right maxillary retention cyst. Mastoid Air Cells: Clear mastoid air cells. No evidence of mastoiditis. Skull: Normal skull morphology. IMPRESSION: 1. No CT signs of acute infarction or hemorrhage. 2. Mild age-appropriate cortical changes with deep white matter microvascular ischemia. Electronically signed by Aayush Martinez 09-07-2024 7:02 PM
[2024-09-07] MEDS: LANTUS PER UNIT CHARGE SC SCH (20:06)
[2024-09-07] MEDS: ATORVASTATIN 40 MG TAB PO SCH (21:08)
[2024-09-07] MEDS: PANTOprazole 40 MG/10 ML SYR IV SCH (21:08)
[2024-09-07] MEDS: DIVALPROEX DELAY RELEASE 500 MG TAB PO SCH (21:08)
[2024-09-07] MEDS: OXcarbazepine 150 MG TABLET PO SCH (21:08)
[2024-09-07] MEDS: MIRTAZAPINE TAB 15 MG TAB PO SCH (21:08)
[2024-09-07 21:26] LABS: ANTI-Xa, UFH(UnfractionatedHep < 0.10 IU/ml (0.3-0.7)
--- NOTE | 2024-09-07 23:31 | CT Scan Report ---
CT of the head without contrast Technique: Noncontrast axial images the head. Coronal and sagittal reformatted images made available for review No comparison Findings: No acute intracranial hemorrhage. No acute transcortical infarct. No midline shift. Ventricles, sulci, cisterns within normal limits. Mild age-appropriate cerebral volume loss. Impression Head CT negative for acute intracranial abnormality. Electronically signed by Henrique Alarcon 09-07-2024 11:31 PM
[2024-09-08] MEDS ORDERED: Heparin IV Adult Wt-Based Low-Dose *NO* INITIAL Bolus Protocol IV STA (01:17)
[2024-09-08] MEDS: HEPARIN 25000 UNIT/500 ML D5W 25,000 UNITS/500 ML BAG IV SCH (01:44)
[2024-09-08 08:10] LABS: Basophils # (auto) 0.05 K/uL (0.00-0.20); Basophils % (auto) 0.7 %; Eosinophils % (auto) 1.3 %; Hematocrit (blood only) 38.9 % (42.0-52.0); Hemoglobin 13.5 g/dl (14.0-18.0); Immature Granulocytes # (auto) 0.03 K/uL (0.01-0.20); Immature Granulocytes % (auto) 0.4 %; Lymphocytes # (auto) 2.68 K/uL (1.20-3.40); Lymphocytes % (auto) 35.3 %; Mean Corpuscular Hemoglobin 29.7 pg (25.0-34.0); Mean Corpuscular Hgb Conc 34.7 g/dL (32.0-36.0); Mean Corpuscular Volume 85.5 fL (80.0-100.0); Monocytes # (auto) 0.37 K/uL (0.11-0.59); Monocytes % (auto) 4.9 %; Neutrophils # (auto) 4.36 K/uL (1.40-6.50); Neutrophils % (auto) 57.4 %; Platelet Count 269 K/uL (130-400); RDW Coefficient of Variation 12.9 % (11.5-14.5); RDW Standard Deviation 39.6 fL (36.4-46.3); Red Blood Count 4.55 M/uL (4.70-6.10); White Blood Count 7.59 K/ul (4.8-10.8)
[2024-09-08 08:25] LABS: Calcium 8.5 mg/dl (8.6-10.3); Creatinine Clr Calc Pharmacy 106.3 ml/min; Magnesium 1.8 mg/dl (1.7-2.4); Potassium 4.1 mmol/L (3.5-5.1)
[2024-09-08 08:31] LABS: Troponin I High Sensitivity 21.5 pg/ml (0-20)
[2024-09-08 08:33] LABS: ANTI-Xa, UFH(UnfractionatedHep 0.33 IU/ml (0.3-0.7)
[2024-09-08 08:36] LABS: Estimated Average Glucose 275 mg/dl; Hemoglobin A1C 11.2 % (4.5-5.6)
--- NOTE | 2024-09-08 08:50 | Pharmacy Report ---
Pharmacy Glycemic Sign Off Nt - Date of Service September 08, 2024 - Assessment & Plan ASSESSMENT: * Pharmacy consulted for glycemic management 2nd initial BSG > 300 mg/dL. BSG trended down to 173 mg/dL yesterday without insulin administered. * Total of 2 unit of Novolog has been administered thus far and BSG trended down to 104 mg/dL and is stable this AM at 113 mg/dL. * Discussed w Dr. Durand - pharmacy signing off glycemic management at this time PLAN FOR INPATIENT GLYCEMIC CONTROL: No changes needed to current regimen. * Continue basal insulin with Lantus 10 units SQ qAM (hold if BSG less than 140 mg/dL) * Continue NovoLog per scale ACHS/Q6hrs while NPO * Goal range = 110 140 mg/dl * CF = 25 mg/dl/unit * CR = 1 unit for ever 8 g CHO consumed * Pharmacy is signing off of glycemic consult and will no longer be making adjustments to inpatient regimen. Please feel free to re-consult if needed. Thank you.
[2024-09-08] MEDS: LANTUS PER UNIT CHARGE SC SCH (08:55)
[2024-09-08] MEDS: amLODIPine BESYLATE 5 MG TAB PO SCH (08:58)
[2024-09-08] MEDS: ASPIRIN 81 MG ECTAB PO SCH (08:59)
[2024-09-08] MEDS ORDERED: lisinopril 10 MG TAB PO SCH (09:00)
[2024-09-08] MEDS: lisinopril 40 MG TAB PO SCH (09:10)
[2024-09-08] MEDS: PANTOprazole 40 MG TAB PO SCH (09:10)
--- NOTE | 2024-09-08 11:34 | Hospitalist Progress Note ---
Date of Service September 08, 2024 Assessment & Plan (1) NSAID induced gastritis: (2) Hypertension, uncontrolled: (3) Uncontrolled type 2 diabetes mellitus with hyperglycemia: (4) Generalized anxiety disorder: (5) Mild intermittent asthma: (6) Demand ischemia: Plan Patient 64-year-old gentleman presents to the emergency room with complaints of low substernal/epigastric pain. Also noted to be quite hypertensive. Patient reports taking a fair amount of NSAIDs recently for headaches. Troponins reviewed, very minimal elevation, most likely demand ischemia from his uncontrolled hypertension. No evidence of acute coronary syndrome. Heparin drip started overnight, can be discontinued. Increase lisinopril for better blood cuff pressure control, add low-dose Coreg for blood pressure control, continue amlodipine Patient's epigastric tenderness most likely NSAID induced and gastritis, no evidence of GI blood loss, continue to avoid NSAIDs, with the exception of aspirin, continue PPI twice daily A long discussion with the patient about his diabetes management. He really prefers not to go back on insulin. Will increase his sulfonylurea, add metformin and add Jardiance when he is discharged will need ongoing following up for his diabetes management Increase activity as tolerated Anticipate patient be discharged tomorrow provided he tolerates adjustments to medications. Admission and Anticipated Discharge Date Admission Date: September 07, 2024 Subjective Patient states epigastric tenderness is improved. He reports that he had been on insulin for his diabetes management prior to being in shelter but then was placed on a pill because apparently he was having his diabetes well-controlled. He states his glucoses only checked once a week at the present. He really prefers not to go back on insulin. No chest pain or shortness of breath. Physical Exam Physical Exam: Constitutional: Alert, nontoxic HEENT: Mucous membranes moist. Lungs: Clear to auscultation, decreased, no wheezes rales or rhonchi CV: S1-S2, regular Abdomen: Soft, minimal epigastric tenderness, no guarding or rigidity, nondistended Extremities: No significant edema Neuro: No focal deficits Psych: Cooperative, normal mood Results & Data Results & Data Vital Signs (Past 12 Hours) Vital Signs Temp Pulse Resp BP Pulse Ox O2 Del Method 09/08/24 10:51 37.1 C 68 21 161/74 H 94 Room Air 09/08/24 07:13 36.6 C 66 20 160/82 H 94 Room Air 09/08/24 03:23 36.6 C 64 18 148/79 H 93 Room Air Diagnostic Findings Reviewed imaging, laboratory and diagnostic studies. Pertinent findings as below. CBC stable electrolytes stable Creatinine 0.87 Hemoglobin A1c 11.2% Troponins reviewed and overall essentially flat, Echocardiogram reviewed, no acute findings
[2024-09-08] MEDS: carvediloL 3.125 MG TAB PO SCH (17:02)
--- NOTE | 2024-09-09 06:08 | Electrocardiogram Report ---
Test Reason : Blood Pressure : */* mmHG Vent. Rate : 79 BPM Atrial Rate : 79 BPM P-R Int : 178 ms QRS Dur : 148 ms QT Int : 406 ms P-R-T Axes : 37 -13 195 degrees QTcB Int : 465 ms Normal sinus rhythm with sinus arrhythmia Premature atrial complexes Left bundle branch block Abnormal ECG No previous ECGs available Confirmed by Javan Lui ([id number]) on 09/09/2024 6:08:15 AM Referred By: [facility] Confirmed By: Javan Lui
--- NOTE | 2024-09-09 06:08 | Electrocardiogram Report ---
Test Reason : Blood Pressure : */* mmHG Vent. Rate : 64 BPM Atrial Rate : 64 BPM P-R Int : 182 ms QRS Dur : 152 ms QT Int : 424 ms P-R-T Axes : 29 -19 233 degrees QTcB Int : 437 ms Normal sinus rhythm with sinus arrhythmia Left bundle branch block Abnormal ECG When compared with ECG of 07-Sep-2024 11:49, No significant change Confirmed by Javan Lui ([id number]) on 09/09/2024 6:08:37 AM Referred By: [facility] Confirmed By: Javan Lui
--- NOTE | 2024-09-09 06:09 | Electrocardiogram Report ---
Test Reason : Blood Pressure : */* mmHG Vent. Rate : 72 BPM Atrial Rate : 72 BPM P-R Int : 180 ms QRS Dur : 158 ms QT Int : 438 ms P-R-T Axes : -10 -12 175 degrees QTcB Int : 479 ms Normal sinus rhythm with sinus arrhythmia Left bundle branch block Abnormal ECG When compared with ECG of 07-Sep-2024 12:23, T wave inversion no longer evident in Inferior leads Confirmed by Javan Lui ([id number]) on 09/09/2024 6:09:13 AM Referred By: [facility] Confirmed By: Javan Lui
[2024-09-09 07:44] LABS: Estimated Average Glucose 278 mg/dl; Hemoglobin A1C 11.3 % (4.5-5.6)
--- NOTE | 2024-09-09 10:55 | Discharge Summary ---
Discharge Summary Date of Service September 09, 2024 Principal Dx & Hospital Course #1 = Principal Diagnosis (1) NSAID induced gastritis: (2) Hypertension, uncontrolled: (3) Uncontrolled type 2 diabetes mellitus with hyperglycemia: (4) Generalized anxiety disorder: (5) Mild intermittent asthma: (6) Demand ischemia: Plan Patient 64-year-old gentleman presents for of local correctional facility presents to the emergency room with complaints of some epigastric and low substernal chest pain. This was associated with some shortness of breath. He is also noted to be hypertensive. Patient was sent to the emergency room and noted to be quite hypertensive. His initial troponin was unremarkable. Patient does have a history of coronary disease and was recommended for hospitalization. Patient was admitted to a monitored unit. There was no significant arrhythmias on telemetry monitoring. His troponins trended upward very slightly this is most likely demand ischemia from his severe hypertension. He was evaluated by interventional cardiology, echocardiogram was performed which showed no significant wall motion abnormality. Cardiology recommended ongoing medical management of his hypertension he did not require any intervention. We also obtained additional history the patient was taking fair amount of ibuprofen for headaches. His symptoms are very consistent with an NSAID induced gastritis. He was started on PPI and all NSAIDs with the exception of his aspirin was held. With these interventions his epigastric tenderness significantly improved. There is no evidence of blood loss. His hemoglobin remained stable. He is lisinopril was increased for blood pressure control. Coreg was added for blood pressure control. He tolerated these interventions well and his blood pressures improved. Patient reported that he at one point had been on insulin to manage his diabetes. He reportedly lost a lot of weight and it improved and was transitioned to oral medications. He states he gets his blood [facility]. Here in the hospital his hemoglobin A1c was over 11%. There was concerns that this may have been a false elevation based on his history, however repeat hemoglobin A1c confirmed A1c greater than 11%. Had extensive conversation with him as well as cosmetology educator had extensive conversation with him about management of his diabetes. He was quite insistent that he did not want to go back on insulin. He also states that he did not tolerate metformin in the past. Will increase his glipizide and add Actos to his medical regimen. More than likely he will need additional interventions to manage his diabetes. On the day of discharge headaches have improved and resolved. Blood pressure is better controlled. Epigastric pain was resolved. [facility] with medical clinic there. Notes For Next Care Provider Anticipate will need ongoing adjustments of medications for diabetes control Recommend checking glucose 2 times daily Anticipate may need additional adjustments of blood pressure medications Recommend Protonix twice daily for 6 weeks then can be taken daily Avoid NSAIDs with the exception of his aspirin for his coronary disease Medication Changes From Visit Lisinopril dose increased to 40 mg daily Coreg added for blood pressure control Glipizide increased to twice daily Actos added for diabetes comanagement Admission HPI Per Admitting Provider 64 year old male with history of coronary artery disease, diabetes type 2, hypertension, dyslipidemia, seizure disorder, arthritis, bipolar disorder, anxiety, mild intermittent asthma, History of cocaine use, presenting with epigastric pain after his meal this morning. History obtained from patient and also [facility] patient reports that after having his breakfast, he developed epigastric pain, sharp/burning, severe, nonradiating, associated with some shortness of breath and dizziness. He then presented to the [facility] and was noted to be hypertensive in the systolic 200s. He was given sublingual nitro and aspirin 324 mg. BSG was also found to be in the 300s. Patient reports improvement of the epigastric pain after taking the sublingual nitro. At the ER, blood pressure 167/101, heart rate 70, respiratory 20, temperature 37.1, 94% on room air. Troponin x 1 negative, EKG showing left bundle branch block, nonspecific T wave inversions in lateral leads- No previous EKGs for comparison. ER physician discussed case with on-call enamel sprayer and planer offbearer. Echocardiogram stat ordered. He was also given Nitropaste, heparin drip, Protonix, famotidine and morphine IV. on exam, patient seen resting in bed, not in distress, comfortable States epigastric pain is moderate, nonradiating, no active shortness of breath, nausea, diaphoresis. He denies melena hematochezia but takes baby aspirin daily along with ibuprofen. No other new symptoms Admission Exam Per Admitting Provider See H&P Discharge Exam Constitutional: Alert, nontoxic HEENT: Mucous membranes moist. Lungs: Clear to auscultation, decreased, no wheezes rales or rhonchi CV: S1-S2, regular Abdomen: Soft, nontender, nondistended Extremities: No significant edema Neuro: No focal deficits Psych: Cooperative, normal mood Updated Medication List Medication Instructions Recorded Confirmed Type albuterol 90 mcg/actuation aerosol 90 mcg inhalation QID PRN 09/07/24 09/07/24 History inhaler Shortness Of Breath Or Wheezing amlodipine 10 mg tablet 10 mg PO DAILY 09/07/24 09/07/24 History aspirin 81 mg tablet,delayed 81 mg PO DAILY 09/07/24 09/07/24 History release atorvastatin 40 mg tablet 40 mg PO HS 09/07/24 09/07/24 History camphor-menthol topical ointment 1 applic topical TID 09/07/24 09/07/24 History divalproex 500 mg tablet,delayed 500 mg PO HS 09/07/24 09/07/24 History release glipizide 5 mg tablet 5 mg PO DAILY 09/07/24 09/07/24 History lisinopril 30 mg tablet 30 mg PO DAILY 09/07/24 09/07/24 History mirtazapine 15 mg tablet 15 mg PO HS 09/07/24 09/07/24 History oxcarbazepine 150 mg tablet 150 mg PO BID 09/07/24 09/07/24 History tolnaftate 1 % topical solution 1 drp topical DAILY 09/07/24 09/07/24 History carvedilol 3.125 mg tablet 3.125 mg PO BIDM #60 tabs 09/09/24 Rx lisinopril 40 mg tablet 40 mg PO DAILY #30 tabs 09/09/24 Rx pantoprazole 40 mg tablet,delayed 40 mg PO BID #60 tabs 09/09/24 Rx release pioglitazone 30 mg tablet (Actos) 30 mg PO DAILY #30 tabs 09/09/24 Rx Hospital Stay Data Consultations 09/07/24 14:00 Consult Cardiology Routine 09/07/24 14:07 ED Decision to Admit Stat Diagnostic Imagining Performed 09/07/24 15:40 CT Abdomen and Pelvis [CT abd pelvis wo con] Stat CT angio chest dissec wo/w con Stat 09/07/24 16:54 CT head/brain wo con Stat 09/07/24 23:30 CT head/brain wo con Urgent Reviewed imaging, laboratory and diagnostic studies. Pertinent findings as below. Echocardiogram showed no wall motion abnormalities minimal valvular pathology, ejection fraction 50 to 55%. Hemoglobin A1c 11.3% WBCs 7.5 Hemoglobin 13.5 Electrolytes stable Creatinine 0.87 Troponin peaked at 22.6, repeat 21.5 Pending Results Patient Have Any Pending Studies at Discharge: No Discharge Instructions Given to Patient (Per Discharging Provider) Avoid all additional NSAIDs which include but not limited to: Advil, Motrin, ibuprofen, Naprosyn, naproxen, Aleve, aspirin containing cold and flu medications You will need to continue to work with your providers to better control your diabetes and your blood pressure. Recommend taking the Protonix 2 times daily for 6 weeks then can continue daily Total Time Total Time Spent Total Time Spent (In Minutes): 36
== END 2024-09-09 13:07 | DRG 392 ==
LOC: ED 11:43 → 2E 14:01 → INTOOBSV 14:01 → SUATTDRO 14:01 → 2E 15:00